=== PATIENT | female | born 1955 | race Two or more races ===

== ENCOUNTER 2018-12-21 05:30 | Day surgery (SDC) | payer OTHER ==
[~2018-12-21 05:30] MED LIST: LOSARTAN-HCTZ1 EACH PO
[2018-12-21] MEDS ORDERED: NABUMETONE750 MG PO (10:55)
[2018-12-21] MEDS ORDERED: PERCOCET 5-3251 EACH PO (10:55)
== END 2018-12-21 14:55 | disposition home or self-care (01) ==
LOC: CIR.AMB 05:30 → EDBD 13:30 → CIR.AMB 14:55
DX: M23.321 Other meniscus derangements, posterior horn of medial meniscus, right knee (principal); M23.311 Other meniscus derangements, anterior horn of medial meniscus, right knee; M65.861 Other synovitis and tenosynovitis, right lower leg; M13.861 Other specified arthritis, right knee; M94.261 Chondromalacia, right knee

== ENCOUNTER 2020-06-05 17:01 | Outpatient (CLI) | payer OTHER ==
[~2020-06-05 17:01] MED LIST changes: +NABUMETONE750 MG PO; +PERCOCET 5-3251 EACH PO
== END 2020-06-05 18:00 | disposition home or self-care (01) ==
LOC: RAD 17:01
PROVIDERS: ATTEND Internal Medicine Cardiovascular Disease
DX: M12.88 Other specific arthropathies, not elsewhere classified, other specified site (principal)

== ENCOUNTER 2020-06-13 10:48 | Outpatient (CLI) | payer OTHER | END 2020-06-13 11:10 | disposition home or self-care (01) | LOC: SONOGRAMA 10:48 | PROVIDERS: ATTEND Internal Medicine Cardiovascular Disease | DX: M12.861 Other specific arthropathies, not elsewhere classified, right knee (principal) ==